=== PATIENT | female | born 1955 | race Hispanic/Latino ===

== ENCOUNTER → 2018-11-30 | Outpatient (CLI) | payer OTHER | END | disposition home or self-care (01) | LOC: RAH 16:22 | PROVIDERS: ATTEND Nurse Practitioner Family | DX: Z12.31 Encounter for screening mammogram for malignant neoplasm of breast (principal) | CPT/HCPCS: 77067 ==

== ENCOUNTER → 2021-01-15 | Outpatient (CLI) | payer OTHER | END | disposition home or self-care (01) | LOC: RAH 15:34 | PROVIDERS: ATTEND Family Medicine | DX: Z12.31 Encounter for screening mammogram for malignant neoplasm of breast (principal) | CPT/HCPCS: 77067 ==

== ENCOUNTER → 2022-01-16 | Outpatient (CLI) | payer OTHER | END | disposition home or self-care (01) | LOC: RAH 10:02 | PROVIDERS: ATTEND Family Medicine | DX: Z12.31 Encounter for screening mammogram for malignant neoplasm of breast (principal) | CPT/HCPCS: 77067 ==

== ENCOUNTER → 2022-11-22 | Outpatient (CLI) | payer OTHER | END | disposition home or self-care (01) | LOC: RAH 13:28 | PROVIDERS: ATTEND Family Medicine | DX: M17.12 Unilateral primary osteoarthritis, left knee (principal); M25.562 Pain in left knee | CPT/HCPCS: 73562 ==

== ENCOUNTER → 2023-02-10 | Outpatient (CLI) | payer OTHER | END | disposition home or self-care (01) | LOC: RAH 09:33 | PROVIDERS: ATTEND Family Medicine | DX: Z12.31 Encounter for screening mammogram for malignant neoplasm of breast (principal) | CPT/HCPCS: 77067 ==

== ENCOUNTER → 2024-02-12 | Outpatient (CLI) | payer OTHER | END | disposition home or self-care (01) | LOC: RAH 14:16 | PROVIDERS: ATTEND Family Medicine | DX: Z12.31 Encounter for screening mammogram for malignant neoplasm of breast (principal) | CPT/HCPCS: 77067 ==

== ENCOUNTER → 2025-03-09 | Outpatient (CLI) | payer OTHER | END | disposition home or self-care (01) | LOC: RAH 15:48 | PROVIDERS: ATTEND Family Medicine | DX: Z12.31 Encounter for screening mammogram for malignant neoplasm of breast (principal) | CPT/HCPCS: 77067 ==

== ENCOUNTER → 2025-04-06 | Outpatient (CLI) | payer OTHER ==
--- NOTE | 2025-04-06 23:41 | HMCIMG ---
STUDY US bilateral breast complete HISTORY Other abnormal and inconclusive findings on diagnostic imaging of the breast; dense breasts TECHNIQUE High-resolution sonographic evaluation of both breasts including retroareolar regions and axillae using a linear transducer with image documentation COMPARISON None available FINDINGS Right breast No solid or cystic mass, architectural distortion, or abnormal acoustic shadowing is identified. Skin thickness is normal. A retroareolar duct measures approximately 4 mm in caliber. In the right axilla, a lymph node measures approximately 1.9 x 1.6 x 1.8 cm with preserved juan morphology, compatible with a benign-appearing axillary lymph node. No additional axillary adenopathy is seen. Left breast No solid or cystic mass, architectural distortion, or abnormal acoustic shadowing is identified. Skin thickness is normal. A retroareolar duct measures approximately 5 mm in caliber. No pathologic left axillary lymphadenopathy is demonstrated. IMPRESSION * Mildly prominent retroareolar ducts bilaterally, measuring approximately 4 mm on the right and 5 mm on the left, without associated mass or suspicious sonographic features. * Benign-appearing right axillary lymph node measuring approximately 1.9 x 1.6 x 1.8 cm, with no additional sonographic evidence of axillary adenopathy. * No sonographic evidence of a suspicious breast mass, architectural distortion, or skin thickening in either breast. /Cesar
== END | disposition home or self-care (01) ==
LOC: RAH 13:19
PROVIDERS: ATTEND Family Medicine
DX: R92.8 Other abnormal and inconclusive findings on diagnostic imaging of breast (principal); R92.30 Dense breasts, unspecified